=== PATIENT | male | born 1980 | race African-American/Black ===

== ENCOUNTER → 2017-07-24 15:44 | Outpatient (CLI) | payer MEDICAID, SELFPAY ==
--- NOTE | 2017-07-24 13:00 | VAS_PTH ---
PATIENT: SANYA LOZOYA LOC: [facility] U#:[id number] AGE/SX: 44/M ROOM: RE07/24/[address]: Dr. Aamir Jack MD : [id number] BED: DIS: SPEC #: [id number] RECD: 07/24/17 15:38 STATUS: JANNA KADEEM #: [id number] ELIUD: 07/24/17 13:[address]: Aamir Jack DEPT: SURGICAL PATHOLOGY RECD BY: Darnell Sahu ENTERED: 07/27/17 08:22 SP TYPE: VAS OTHR DR: No Primary Care Phys Tissues: A - Vas deferens, NOS B - Vas deferens, NOS Procedures: Surgery Specimen Level II HEADER OPERATION: Bilateral partial vasectomy PRE-OP DIAGNOSIS: Sterilization TISSUE SUBMITTED: A ? Right vas deferens, B ? Left vas deferens MICROSCOPIC DIAGNOSIS A. Right vas deferens, partial vasectomy: Completely transected segment of vas deferens, no pathologic diagnosis. B. Left vas deferens, partial vasectomy: Completely transected segment of vas deferens, no pathologic diagnosis. GIAN:cesar 07/28/17 MICROSCOPIC DESCRIPTION Slides are reviewed. GROSS DESCRIPTION A - Received is one container designated right vas deferens. The specimen consists of a cylindrical segment of pink-aguilar soft tissue. The fragment measures 0.8 cm in length and 0.2 cm in maximum diameter. Serial sections do not reveal gross lesions. The specimen will be serially sectioned at the time of embedding and totally submitted in one cassette. B - Received is one container designated left vas deferens. The specimen consists of a cylindrical segment of pink-aguilar soft tissue. The fragment measures 1.5 cm in length and 0.2 cm in maximum diameter. Serial sections do not reveal gross lesions. The specimen will be serially sectioned at the time of embedding and totally submitted in one cassette. / GIAN:cesar 07/27/17 TC:4 CPT: 06869 x2
== END ==
PROVIDERS: Visit Provider Surgery
DX: Z30.2 Encounter for sterilization (principal)
CPT/HCPCS: 88302

== ENCOUNTER 2019-04-25 10:37 | Emergency (ER) | payer SELFPAY ==
[2019-04-25 10:40] VITALS: BP 129/63; PULSE 57; RESP 17; TEMP 36.6; O2SAT 99; BMI 22.6
--- NOTE | 2019-04-25 11:07 | RAD_ITS ---
STUDY: X-RAY - CERVICAL SPINE REASON FOR EXAM: Male, 38 years old. TECHNIQUE: 4 view(s) of the cervical spine were obtained. COMPARISON: None FINDINGS: Normal anterior atlantoaxial articulation. Normal odontoid process. Straightend cervical lordosis. Normal vertebral bodies and endplates. Normal disc space heights except for minimal narrowing at the level of C5-6. Normal visualized intervertebral neuroforamina. The soft tissue structures are unremarkable. RAD/Cerv Spine 2 or 3 Views IMPRESSION: Normal x-ray examination of the visualized cervical spine. Electronically Signed: Bina Thao, at 12:03 EST Tel , Service support ,
--- NOTE | 2019-04-25 11:07 | RAD_ITS ---
STUDY: X-RAY - LUMBAR SPINE REASON FOR EXAM: Male, 38 years old. TECHNIQUE: 3 view(s) of the lumbar spine were obtained. COMPARISON: None FINDINGS: Normal lumbar lordosis. There is no substantial scoliosis. There is a normal alignment of the vertebrae. Normal vertebral bodies and endplates. Normal disc space heights. The soft tissue structures are unremarkable. RAD/Lumbar Spine 2 or 3 Views IMPRESSION: Normal x-ray examination of the lumbar spine. Electronically Signed: Bina Thao, at 12:03 EST Tel , Service support ,
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
[2019-04-25] MEDS: Ketorolac 60 MG/2 ML Vial IM (11:20)
[2019-04-25 13:01] VITALS: BP 90/53; PULSE 60; RESP 14
== END 2019-04-25 13:02 | disposition home or self-care (01) ==
PROVIDERS: Emergency Provider Emergency Medicine
DX: S16.1XXA Strain of muscle, fascia and tendon at neck level, initial encounter (principal); S39.012A Strain of muscle, fascia and tendon of lower back, initial encounter; V53.5XXA Driver of pick-up truck or van injured in collision with car, pick-up truck or van in traffic accident, initial encounter; Y93.89 Activity, other specified; Y92.410 Unspecified street and highway as the place of occurrence of the external cause; F17.200 Nicotine dependence, unspecified, uncomplicated
CPT/HCPCS: 72040; 72100; 96372; 99282